=== PATIENT | male | born 1980 | race Caucasian/White ===

== ENCOUNTER 2020-01-24 16:36 | Emergency (ER) | payer MEDICARE, MEDICAID ==
[~2020-01-24] VITALS: Ht 167.6 cm; Wt 75.1 kg
[2020-01-24] MEDS ORDERED: SODIUM CHLORIDE FLUSH 10ML SYR IVF ONE ×2 (17:30)
[2020-01-24] MEDS ORDERED: PROPOFOL 10 MG/ML, 20ML IVPush ONE (17:30)
[2020-01-24] MEDS ORDERED: PROPOFOL 10 MG/ML, 20ML ONE (17:45)
--- NOTE | 2020-01-24 18:02 | NUR ---
pt moved to tr01 for conscious sedation/endoscopy. grandma=legal hvac sales representative. awaiting gi. piv est. vss. pt speaking full sentences, no pain. as
[2020-01-24] MEDS ORDERED: QUET100T4 PO (18:07)
[2020-01-24] MEDS ORDERED: BENZ1TAB61 PO (18:07)
[2020-01-24] MEDS ORDERED: RISP2TAB80 PO (18:07)
[2020-01-24] MEDS ORDERED: BUPR-86 PO (18:07)
--- NOTE | 2020-01-24 18:20 | NUR ---
called [facility], pt covid negative. as
--- NOTE | 2020-01-24 18:43 | NUR ---
dr srivastava and dr pollock in room for egd, procedure end time 1843, grandmother in room for update by md, see paper charting for sedation vitals. as
--- NOTE | 2020-01-24 18:50 | NUR ---
pt awake, a*ox4 gcs 15. grandma in room, updated. as
--- NOTE | 2020-01-24 19:10 | NUR ---
report to crhissy davalos rn. as
--- NOTE | 2020-01-24 19:10 | NUR ---
REPORT FROM KYLAH METZGER
--- NOTE | 2020-01-24 19:23 | NUR ---
pt resting in gurney, 97% RA. states he feels "ok", throat feels a little scartchy but able to swallow. pt able to speak in full sentences. grandmother at bedside.
[2020-01-24 19:25] VITALS: BP 112/73
[2020-01-24] MEDS ORDERED: ACETAMINOPHEN 325 MG TABLET ONE (19:57)
[2020-01-24] MEDS ORDERED: ACETAMINOPHEN 325 MG TABLET PO ONE (20:00)
--- NOTE | 2020-01-24 20:31 | NUR ---
PT SWALLOWS TYLENOL WITH NO DIFFICULTIES OR COUGHING. PT FEELS BETTER, READY TO GO HOME. PT HAS STEADY GAIT. GRANDMOTHER TO DRIVE HOME
== END 2020-01-24 20:34 | disposition home or self-care (01) ==
LOC: ED 18:30
DX: T18.128A Food in esophagus causing other injury, initial encounter (principal); X58.XXXA Exposure to other specified factors, initial encounter; Y93.89 Activity, other specified; Y92.89 Other specified places as the place of occurrence of the external cause; Y99.8 Other external cause status
CPT/HCPCS: 88305; 99152; 99153; 99285